=== PATIENT | male | born 1955 | race Caucasian/White ===

== ENCOUNTER → 2017-07-08 | Outpatient (REF) ==
[~2017-07-08] MED LIST: AMLODIPINE10 MG PO; BENICAR HCT 251 TAB PO; DILAUDID 2MG TAB2 MG PO; HYZAAR 12.5 MG-1 TAB PO; KLONOPIN PO; LEVOTHYROXINE0.1 MG PO; LIPITOR20 MG PO; METOPROLOL SR100 MG PO; NEXIUM PO; PERCOCET 325 MG1 TA2 PO; PLAVIX 75MG TAB75 MG PO; TIROSINT137 MC1 PO; ZOCOR 40MG40 MG PO; ZOLOFT 100MG100 MG PO; ZOLOFT PO
== END ==
LOC: ZLAB.WCH 08:46
DX: Z02.89 Encounter for other administrative examinations (principal)

== ENCOUNTER → 2019-12-16 | Outpatient (CLI) | payer OTHER | LOC: COL.VAS 07:26 | DX: I11.9 Hypertensive heart disease without heart failure (principal) ==

== ENCOUNTER 2020-03-22 17:30 | Observation (INO) | payer OTHER ==
[~2020-03-22] VITALS: Ht 172.7 cm; Wt 118.4 kg
[~2020-03-22 17:30] MED LIST changes: +KLONOPIN 0.5MG0.5 MG PO; -KLONOPIN PO
[2020-03-22 18:29] LABS: COLLECTION METHOD CLEAN CATCH
[2020-03-22 18:32] LABS: BASO # 0.1 (0.0-0.2); BASO % 0.6 % (0.0-2.0); EOS # 0.3 (0.0-0.7); EOS % 2.2 % (0-4.0); GRAN # 7.5 (1.4-6.5); GRAN % 66.7 % (42.2-75.2); HEMOGLOBIN 14.5 g/dl (13.5-18.0); LYMPH # 2.4 (1.2-3.4); LYMPH % 20.9 % (20.0-51.0); MEAN CELL VOLUME 86 fl (80.0-100.0); MEAN CORPUSCULAR HEMOGLOBIN 30 pg (27.0-31.0); MEAN CORPUSCULAR HGB CONC 35 g/dl (33.0-37.0); MEAN PLATELET VOLUME 10.5 fl (7.4-10.4); MONO % 9.1 % (1.7-9.3); PLATELET COUNT 245 K/mm3 (130-400); REDCELL DISTRIBUTION WIDTH-CV 13.9 % (11.5-14.5)
[2020-03-22 18:45] LABS: ALANINE AMINOTRANSFERASE 32 U/L (4-49); ALBUMIN 4.5 gm/dL (3.5-5.0); ALKALINE PHOSPHATASE 111 U/L (50-136); ANION GAP 8 mmol/L (7-16); AST,SGOT 36 U/L (15-37); BILIRUBIN,TOTAL 0.4 mg/dL (0.0-1.0); BLOOD UREA NITROGEN 25 mg/dL (9-20); CALCIUM 10.7 mg/dL (8.4-10.2); CARBON DIOXIDE 27 mmol/L (22-30); CHLORIDE 104 mmol/L (98-107); CREATININE, serum 1.31 (0.66-1.25); GLUCOSE 119 mg/dL (74-106); LIPASE 151 U/L (23-300); POTASSIUM 3.6 mmol/L (3.4-5.0); SODIUM 138 mmol/L (137-145); TOTAL PROTEIN 8.2 gm/dL (6.4-8.2)
[2020-03-22 18:45] LABS: MUCOUS Present /lpf; PH 6 (5-8); SQUAMOUS EPITHELIAL None Seen /hpf; URINE APPEARANCE Hazy; URINE BACTERIA None Seen /hpf; URINE BILIRUBIN Negative (NEGATIVE); URINE BLOOD 3+ (NEGATIVE); URINE COLOR Yellow; URINE GLUCOSE Negative (NEGATIVE); URINE KETONE Negative (NEGATIVE); URINE LEUKOCYTE ESTERASE Trace (NEGATIVE); URINE NITRATE Negative (NEGATIVE); URINE PROTEIN(semi-quant) 1+ (NEGATIVE); URINE RBC >50 /hpf; URINE UROBILINOGEN Negative (NEGATIVE)
[2020-03-22 18:46] LABS: C-REACTIVE PROTEIN < 0.5 mg/dL (0.0-0.9)
[2020-03-22 18:54] LABS: TROPONIN-I < 0.012 ng/mL (0.000-0.035)
[2020-03-22] MEDS ORDERED: CRESTOR40 MG PO (20:07)
[2020-03-22] MEDS ORDERED: ASPIRIN 81M81 MG/TA2 PO (20:09)
[2020-03-22] MEDS ORDERED: VISTARIL100 MG PO (20:09)
[2020-03-22] MEDS ORDERED: PROTONIX 40MG T40 MG PO (20:09)
[2020-03-22] MEDS ORDERED: VITAMIN B COMPL1 SGL PO (20:10)
[2020-03-22] MEDS ORDERED: THE MEDICINE S200 M2 PO (20:10)
[2020-03-22] MEDS ORDERED: MASON NATURAL1200 MG PO (20:10)
[2020-03-22] MEDS ORDERED: IRON 27 MG PO (20:11)
[2020-03-22] MEDS ORDERED: LASIX 40MG TABL40 MG PO (20:35)
--- NOTE | 2020-03-22 21:25 | NUR ---
ADMITTED TO ROOM 325 PER W/C, ALERT AND ORIENTED X4 MALE WITH DX KIDNEY STONE. HAS IV TO LEFT HAND WITHOUT REDNESS OR SWELLING. REPORTS PAIN 2/10 PAIN AT THIS TIME.
--- NOTE | 2020-03-22 22:20 | NUR ---
NEW ORDERS FROM DR NAJERA PER PT REQUEST, TYPE COPYIST DC'D, MORPHINE PRN. HS HOME MEDS RESTARTED.
[2020-03-22] MEDS ORDERED: APRESOLINE50 MG PO (22:35)
[2020-03-22] MEDS ORDERED: CARTIA XT240 MG PO (22:36)
[2020-03-22] MEDS ORDERED: COREG 25MG25 MG/TAB PO (22:38)
[2020-03-22] MEDS ORDERED: SYNTHROID 0.10.15 MG PO (22:39)
[2020-03-22] MEDS ORDERED: HYZAAR 25 MG-101 TAB PO (22:42)
[2020-03-22 22:50] VITALS: BP 148/84; PULSE 76; TEMP 97.6
[2020-03-23] VITALS (7 sets, daily range): BP systolic 105–134; BP diastolic 60–80; PULSE 71–81; TEMP 97.6–98.6
--- NOTE | 2020-03-23 | NUR ---
IS NPO FOR PROCEDURE IN AM.
--- NOTE | 2020-03-23 06:50 | NUR ---
TO SURGERY PER BED.
--- NOTE | 2020-03-23 07:00 | NUR ---
Patient down to OR.
--- NOTE | 2020-03-23 09:00 | NUR ---
Patient up from OR, drowsy but arouses to voice and touch. Post op fluids infusing per orders. VSS. Denies further needs at this time.
--- NOTE | 2020-03-23 13:10 | NUR ---
Discharge education reviewed with patient. Educated on increasing fluid intake and follow up appointment. Educated on all new medications. All questions answered. INT discontinued, catheter tip intact. Patient tolerating diet without difficulties. Has been up ambulating in room, steady gait. Voiding red-tinged urine. Denies further needs at this time. Patient ambulated out with surgical staff.
== END 2020-03-23 13:10 | disposition home or self-care (01) ==
LOC: COL.ER 17:30 → SURG 17:30 → SDCO 17:30 → SURG 19:51 → SDCO 19:54 → SURG 19:55 → EDSTATUS 20:42 → SDCO 03-23 07:30 → SURG 03-23 07:30 → EDSTATUS 03-23 08:33 → SDCO 03-23 09:14 → SURG 03-23 09:15
PROVIDERS: Emergency Medicine; ADMIT Urology
DX: N20.1 Calculus of ureter (principal); F41.9 Anxiety disorder, unspecified; I25.10 Atherosclerotic heart disease of native coronary artery without angina pectoris; E11.9 Type 2 diabetes mellitus without complications; F32.9 Major depressive disorder, single episode, unspecified; K21.9 Gastro-esophageal reflux disease without esophagitis; I10 Essential (primary) hypertension; E03.9 Hypothyroidism, unspecified; Z90.49 Acquired absence of other specified parts of digestive tract; Z98.52 Vasectomy status; Z79.82 Long term (current) use of aspirin; Z79.84 Long term (current) use of oral hypoglycemic drugs; Z79.02 Long term (current) use of antithrombotics/antiplatelets; Z91.048 Other nonmedicinal substance allergy status; Z87.891 Personal history of nicotine dependence; Z82.3 Family history of stroke
CPT/HCPCS: OP; C1769; C2617; G0378; J0690; J1100; J1885; J2405; J3010; J7030; Q9967

== ENCOUNTER 2022-01-23 10:46 | Emergency (ER) | payer SELFPAY ==
[~2022-01-23] VITALS: Ht 175.3 cm; Wt 113.6 kg
[~2022-01-23 10:46] MED LIST changes: +APRESOLINE50 MG PO; +ASPIRIN 81M81 MG/TA2 PO; +CARTIA XT240 MG PO; +COREG 25MG25 MG/TAB PO; +CRESTOR40 MG PO; +HYZAAR 25 MG-101 TAB PO; +IRON 27 MG PO; +LASIX 40MG TABL40 MG PO; +MASON NATURAL1200 MG PO; +PROTONIX 40MG T40 MG PO; +SYNTHROID 0.10.15 MG PO; +THE MEDICINE S200 M2 PO; +VISTARIL100 MG PO; +VITAMIN B COMPL1 SGL PO
[2022-01-23 10:52] VITALS: TEMP 98.5
[2022-01-23] MEDS ORDERED: CLEOCIN HCL300 MG PO (12:16)
[2022-01-23 12:24] VITALS: BP 147/89; PULSE 78
== END 2022-01-23 12:23 | disposition home or self-care (01) ==
LOC: COL.ER 10:46
DX: S62.623A Displaced fracture of middle phalanx of left middle finger, initial encounter for closed fracture (principal); S61.213A Laceration without foreign body of left middle finger without damage to nail, initial encounter; S61.211A Laceration without foreign body of left index finger without damage to nail, initial encounter; Z23 Encounter for immunization; Z87.891 Personal history of nicotine dependence; W27.0XXA Contact with workbench tool, initial encounter; Y92.59 Other trade areas as the place of occurrence of the external cause; Y99.0 Civilian activity done for income or pay